=== PATIENT | male | born 1975 | race Caucasian/White ===

== ENCOUNTER 2024-05-19 13:33 | Emergency (ER) | payer OTHER ==
[2024-05-19 13:47] VITALS: TEMP 97.8
[2024-05-19] MEDS ORDERED: PROTONIX 40 MG IV IV ONE (14:09)
--- NOTE | 2024-05-19 14:09 | ERPHSYRPT ---
- History of Present Illness Time Seen by Provider: 05/19/24 13:44 Historian: patient Exam Limitations: no limitations Patient Subjective Stated Complaint: Pt states "I am bloated and I have pressure in my belly that feels like everything is being pushed upward. Every time I eat it really hurts and I notice that I have had blood in my mouth when I wake up." Triage Nursing Assessment: Pt presented alert and oriented x 3, skin pwd. Pt ambulates with an upright steady gait, able to speak in clear full sentences. PT resting comfortably on the bed. Pt abdomen slightly distended and firm. Physician History: 48-year-old male presented in the ER with complaint of upper abdominal pressure/pain and difficulty swallowing. Patient reports his symptoms of pain and discomfort got worse after oral intake and whenever he wakes up in the morning he has a bad taste in his mouth. Reports his symptoms get some relief with Pepto-Bismol and Pepcid. Lately having some difficulty swallowing solid food but okay with liquids. Reports vaping and chewing tobacco. No chest pain or palpitations reported. Denies any dark stool hemoptysis, hematemesis or hematochezia. Patient also reports having abdominal distention last night which improved on its own overnight. Allergies/Adverse Reactions: No Known Drug Allergies Allergy (Verified 05/19/24 13:47) Home Medications: Buprenorphine HCl/Naloxone HCl [Suboxone 8 mg-2 mg Sl Film] 1 each SL DAILY 05/19/24 [History] lisinopriL [Lisinopril] 40 mg PO 05/19/24 [History] Hx Tetanus, Diphtheria Vaccination/Date Given: Yes Hx Influenza Vaccination/Date Given: No Hx Pneumococcal Vaccination/Date Given: No Immunizations Up to Date: No Travel Risk - International Travel Have you traveled outside of the country in past 3 weeks: No - Emerging Infectious Disease Are you exhibiting symptoms associated with any current EIDs: No - Review of Systems Constitutional: No Symptoms Eyes: No Symptoms Ears, Nose, & Throat: No Symptoms Respiratory: No Symptoms Cardiac: No Symptoms Abdominal/Gastrointestinal: Abdominal Pain Genitourinary Symptoms: No Symptoms Musculoskeletal: No Symptoms Skin: No Symptoms Neurological: No Symptoms Psychological: No Symptoms Endocrine: No Symptoms Hematologic/Lymphatic: No Symptoms - Past Medical History Pertinent Past Medical History: Yes Cardiac History: Hypertension Other Medical History: chronic pain - Past Surgical History Past Surgical History: Yes Other Surgical History: right shoulder and right hand - Social History Smoking Status: Never smoker Exposure to second hand smoke: Yes Drug Use: none - Social Determinants of Health Will the patient participate in the screening: Declined to provide - Nursing Vital Signs Nursing Vital Signs: Initial Vital Signs Temperature 97.8 F 05/19/24 13:41 Pulse Rate 107 H 05/19/24 13:41 Respiratory Rate 20 05/19/24 13:41 Blood Pressure 174/107 05/19/24 13:41 O2 Sat by Pulse Oximetry 99 05/19/24 13:41 Pain Scale Pain Intensity 0 - Physical Exam General Appearance: no apparent distress, alert Eye Exam: PERRL/EOMI Ears, Nose, Throat Exam: normal ENT inspection Neck Exam: normal inspection, non-tender, supple, full range of motion Respiratory Exam: normal breath sounds, lungs clear Cardiovascular Exam: regular rate/rhythm, normal heart sounds Gastrointestinal/Abdomen Exam: soft, normal bowel sounds, tenderness (Minimal epigastric area), No distention, No guarding Back Exam: normal inspection Extremity Exam: normal inspection, normal range of motion Neurologic Exam: alert, oriented x 3, cooperative, drying machine tender II-XII nml as tested Skin Exam: normal color SpO2 Interpretation: normal SpO2: 99 O2 Delivery: Room Air Ordered Tests: Active Orders 24 hr Category Date Time Status IV Insertion STAT Care 05/19/24 14:05 Active ABDOMEN AND PELVIS W/0 CONTRAS [CT] Stat Exams 05/19/24 14:05 Completed CBC W DIFF Stat Lab 05/19/24 14:25 Completed CMP Stat Lab 05/19/24 14:25 Completed LIPASE Stat Lab 05/19/24 14:25 Completed TROPONIN Q4H Lab 05/19/24 14:25 Completed TROPONIN Q4H Lab 05/19/24 18:15 Ordered TROPONIN Q4H Lab 05/19/24 22:15 Ordered UA W/RFX UR CULTURE Stat Lab 05/19/24 14:05 Ordered Medication Summary Discontinued Medications Generic Name Dose Route Start Last Admin Trade Name Freq PRN Reason Stop Dose Admin Al Hydrox/Mg Hydrox/Simethicone Confirm 05/19/24 14:10 Mag Hydrox/Al Hydrox/Simeth 30 Ml Udcup Administered 05/19/24 14:11 Dose 30 ml .ROUTE .STK-MED ONE Lidocaine HCl Confirm 05/19/24 14:10 Lidocaine Hcl 2% Viscous 15 Ml Udcup Administered 05/19/24 14:11 Dose 15 ml .ROUTE .[facility] ONE Magnesium Hydroxide 45 ml 05/19/24 14:05 05/19/24 14:11 Mag Hydrx/Alum Hyd/Simeth/Lido 45 Ml Bottle PO 05/19/24 14:06 45 ml STAT ONE Administration Pantoprazole Sodium 40 mg 05/19/24 14:05 05/19/24 14:11 Pantoprazole 40 Mg Vial IV 05/19/24 14:06 40 mg STAT ONE Administration Pantoprazole Sodium Confirm 05/19/24 14:09 Pantoprazole 40 Mg Vial Administered 05/19/24 14:10 Dose 40 mg IV .[facility] Lab/Rad Data: Laboratory Result Diagrams 05/19/24 14:25 05/19/24 14:25 Laboratory Results 05/19/24 05/19/24 05/19/24 Range/Units 14:25 14:25 14:25 WBC 5.5 (4.23-9.07) x10^3/uL RBC 4.73 (4.63-6.08) x10^6/uL Hgb 15.4 (13.7-17.5) g/dL Hct 43.4 (40.1-51.0) % MCV 91.8 (79.0-92.2) fL MCH 32.6 H (25.7-32.2) pg MCHC 35.5 (32.3-36.5) g/dL RDW 11.5 L (11.6-14.4) % Plt Count 201 (163-337) x10^3/uL MPV 11.2 (9.4-12.4) fL Gran % 67.6 (34.0-67.9) % Immature Gran % (Auto) 0.4 (0.001-0.429) % Nucleat RBC Rel Count 0.0 (0.00-0.2) % Eos # (Auto) 0.17 (0.04-0.54) x10^3/uL Immature Gran # (Auto) 0.02 (0.001-0.031) x10^3u/L Absolute Lymphs (auto) 1.08 L (1.32-3.57) x10^3/uL Absolute Monos (auto) 0.45 (0.30-0.82) x10^3/uL Absolute Nucleated RBC 0.00 (0.00-0.012) x10^3u/L Lymphocytes % 19.8 L (21.8-53.1) % Monocytes % 8.2 (5.3-12.2) % Eosinophils % 3.1 (0.8-7.0) % Basophils % 0.9 (0.2-1.2) % Absolute Granulocytes 3.69 (1.78-5.38) x10^3/uL Basophils # 0.05 (0.01-0.08) x10^3/uL Sodium 137 (135-145) mmol/L Potassium 4.2 (3.5-5.1) mmol/L Chloride 102 (98-107) mmol/L Carbon Dioxide 27 (22-30) mmol/L Anion Gap 11.4 (5-15) MEQ/L BUN 13 (9-20) mg/dL Creatinine 1.11 (0.66-1.25) mg/dL Estimated GFR 82.4 ML/MIN Glucose 124 H (74-106) mg/dL Calcium 9.2 (8.4-10.2) mg/dL Total Bilirubin 1.10 (0.2-1.3) mg/dL AST 75 H (17-59) U/L ALT 60 H (0-50) U/L Alkaline Phosphatase 73 (38-126) U/L Troponin I < 0.012 (0.000-0.033) ng/mL Serum Total Protein 7.3 (6.3-8.2) g/dL Albumin 4.5 (3.5-5.0) g/dL Lipase 36 (23-300) U/L - Progress Progress: improved Progress Note: 05/19/24 17:04 48-year-old is evaluated in the ER for upper abdominal pain with GERD symptoms. He is given GI cocktail and Protonix, reevaluation he is symptom-free. Workup showed normal white count, chemistries fairly unremarkable except for some elevation in transaminases. Normal lipase and total bili. Normal troponin. CT abdomen pelvis showed hiatal hernia. No other acute intra-abdominal pelvic findings. I believe patient's symptoms are secondary to GERD with esophagitis and some element of stricture could be there. Recommended outpatient follow-up with primary care and may need referral for GI for endoscopy and will start patient on Protonix and Carafate. Discussed signs symptoms of worsening needing return to ER which he seems understanding. Counseled pt/family regarding: lab results, diagnosis, need for follow-up, rad results, smoking cessation Medical Desision Making - Diagnostic Testing Diagnostic test were ordered, analyzed, and reviewed by me: Yes Radiological Interpretation: Reviewed by me - Risk of complications The pt has a mod risk of morbidity or mortality based on: Need for prescription drug management - Departure Departure Disposition: Home Clinical Impression: GERD with esophagitis, Hiatal hernia Condition: Stable Critical Care Time: No Referrals: DOCTOR,NO FAMILY [Primary Care Provider] - Follow up with PCP 1 day YONY BOWLING MD [ACTIVE STAFF] - Follow up/PCP as directed (For review evaluation and upper GI endoscopy) Instructions: Dyspepsia (DC), Acid Reflux, Adult and Adolescent ED Additional Instructions: Do not smoke or chew tobacco. Use Tylenol as needed. Do not take ibupro fen/Aleve or any other NSAIDs. Follow-up with primary care for reevaluation and also follow-up with general surgery/GI for endoscopy. Return to ER for any worsening. Prescriptions: Sucralfate 1 gm [Carafate 1 GM] 1 g PO ACHS #20 tablet PANTOPRAZOLE 40 mg Tablet [Protonix 40MG Tablet] 40 mg PO QAM #30 tab
[2024-05-19] MEDS ORDERED: MAALOX ES 30 ML UNIT DOSE ONE (14:10)
[2024-05-19] MEDS ORDERED: XYLOCAINE VISCOUS 2% 15 ML CUP ONE (14:10)
[2024-05-19] MEDS: GI COCKTAIL 45 ML (Maalox/Lidocaine) PO ONE (14:11)
[2024-05-19] MEDS: PROTONIX 40 MG IV IV ONE (14:11)
[2024-05-19 14:29] LABS: Absolute Neutrophil Ct (ANC) 3.69 x10^3/uL (1.78-5.38); BASOPHIL % 0.9 % (0.2-1.2); Basophil (Absolute #) 0.05 x10^3/uL (0.01-0.08); Eosinophil % 3.1 % (0.8-7.0); Eosinophil (Absolute #) 0.17 x10^3/uL (0.04-0.54); Hematocrit 43.4 % (40.1-51.0); Hemoglobin 15.4 g/dL (13.7-17.5); IMMATURE GRAN # 0.02 x10^3u/L (0.001-0.031); IMMATURE GRAN % 0.4 % (0.001-0.429); Lymphocyte (Absolute #) 1.08 x10^3/uL (1.32-3.57); Lymphocytes % 19.8 % (21.8-53.1); Mean Cell Volume 91.8 fL (79.0-92.2); Mean Corpuscular Hemoglobin 32.6 pg (25.7-32.2); Mean Corpuscular Hgb Concent. 35.5 g/dL (32.3-36.5); Mean Platelet Volume 11.2 fL (9.4-12.4); Monocyte (Absolute #) 0.45 x10^3/uL (0.30-0.82); Monocytes % 8.2 % (5.3-12.2); Neutrophil % 67.6 % (34.0-67.9); Platelet Count 201 x10^3/uL (163-337); Red Blood Count 4.73 x10^6/uL (4.63-6.08); Red Cell Distribution Width 11.5 % (11.6-14.4); White Blood Count 5.5 x10^3/uL (4.23-9.07)
[2024-05-19 15:03] LABS: ALBUMIN 4.5 g/dL (3.5-5.0); ANION GAP 11.4 MEQ/L (5-15); BILIRUBIN,TOTAL 1.1 mg/dL (0.2-1.3); Calcium 9.2 mg/dL (8.4-10.2); Creatinine 1 1.11 mg/dL (0.66-1.25); EST GLOMERULAR FILTRATION RATE 82.4 ML/MIN; Potassium 4.2 mmol/L (3.5-5.1); Total Protein 7.3 g/dL (6.3-8.2)
--- NOTE | 2024-05-19 16:35 | XRAY ---
Indication: Upper abdomen pain. Multiple contiguous axial images obtained through the abdomen and pelvis without contrast. Comparison: None Lung bases clear. Heart not enlarged. Small hiatal hernia. Noncontrasted stomach and bowel loops appear nonobstructed with normal appendix. No free fluid/air. Remaining liver, gallbladder, pancreas, spleen, adrenal glands, kidneys, ureters, and bladder are unremarkable for noncontrast exam. Minimal aortic calcifications without AAA. Osseous structures intact with minimal/mild degenerative changes throughout thoracolumbar spine greatest at L4-L5 and small superior L2 Schmorl node. Impression: Hiatal hernia, arteriosclerotic disease, and chronic bony findings. Remaining CT abdomen/pelvis without contrast exam is normal.
[2024-05-19 17:09] VITALS: O2SAT 99
[2024-05-19 17:11] VITALS: BP 161/94; PULSE 72; RESP 16
== END 2024-05-19 17:23 | disposition home or self-care (01) ==
LOC: ED 13:33
DX: K21.00 Gastro-esophageal reflux disease with esophagitis, without bleeding (principal); K44.9 Diaphragmatic hernia without obstruction or gangrene; R10.10 Upper abdominal pain, unspecified; R13.10 Dysphagia, unspecified; I10 Essential (primary) hypertension; Z79.891 Long term (current) use of opiate analgesic; Z79.899 Other long term (current) drug therapy
CPT/HCPCS: 36415; 74176; 80053; 83690; 84484; 85025; 96374; 99284; A9270-GY

== ENCOUNTER 2024-06-22 05:57 | Day surgery (SDC) | payer OTHER ==
[2024-06-22 06:20] VITALS: RESP 16
[2024-06-22] MEDS: Lactated Ringers 1,000 ML IV SCH (06:44)
[2024-06-22 06:52] LABS: ANION GAP 14.6 MEQ/L (5-15); Calcium 9.3 mg/dL (8.4-10.2); Creatinine 1 1.03 mg/dL (0.66-1.25); EST GLOMERULAR FILTRATION RATE 90.2 ML/MIN; Potassium 3.8 mmol/L (3.5-5.1)
[2024-06-22] MEDS ORDERED: propofoL IV ONE (08:03)
[2024-06-22] MEDS ORDERED: Versed 2 MG/2 ML Injection ONE (08:03)
[2024-06-22 08:54] VITALS: BP 151/80; PULSE 80; TEMP 97; O2SAT 97
--- NOTE | 2024-06-23 14:51 | OP ---
SURGERY DATE/TIME: 06/22/2024 [id number] PREOPERATIVE DIAGNOSES: 1) Upper gastrointestinal bleeding. 2) Gastroesophageal reflux disease. POSTOPERATIVE DIAGNOSES: 1) Moderate gastritis. 2) Nodular region, distal esophagus. PROCEDURE: Esophagogastroduodenoscopy. SURGEON: Foster Escalona MD ANESTHESIA: MAC by Paulino Patel CRNA. ESTIMATED BLOOD LOSS: Minimal. SPECIMENS: There are 2 cold forceps biopsies from the gastric antrum sent for H pylori testing and 1 cold forceps biopsy of nodular region in the lower distal esophagus. DESCRIPTION OF PROCEDURE AND FINDINGS: After informed written consent was obtained, the patient was taken to the endoscopy suite. He was placed in the left lateral decubitus position and a bite block was inserted. Anesthesia was titrated to the desired level of consciousness, and the endoscope was inserted in the posterior oropharynx. Under direct visualization, the esophagus was easily traversed. Upon entry into the stomach, there was normal rugae of gastric mucosa. There were moderate gastritis-type changes in the distal gastric antrum with some old, dried, looks like blood, but no active bleeding or obvious ulceration. The pylorus was traversed, and the first and second portions of the duodenum had a normal mucosal appearance. Two cold forceps biopsies were taken from the gastric antrum and sent for H pylori testing. Upon further withdrawal, the remainder of the gastric mucosa had a normal appearance, no obvious lesions or defects. The GE junction had some mild inflammatory changes but no masses. There was a small nodular area in the distal esophagus which was grasped with the forceps, sampled, and sent for pathology testing. The remainder of the exam was unremarkable upon withdrawal. The patient was transferred to the recovery room in good condition and advised to continue current medical regimen and follow up in 1 week for pathology results.
== END 2024-06-22 09:15 | disposition home or self-care (01) ==
LOC: SDC 05:57
PROVIDERS: ATTEND Family Medicine
DX: K29.71 Gastritis, unspecified, with bleeding (principal); K21.9 Gastro-esophageal reflux disease without esophagitis
CPT/HCPCS: 36415; 80048; 93005; J2250; J2704